=== PATIENT | male | born 1935 | race Caucasian/White ===

== ENCOUNTER → 2016-06-30 | Outpatient (CLI) | payer MEDICARE ==
--- NOTE | 2016-06-30 15:19 | CT ---
EXAMINATION TYPE: CT abdomen pelvis wo con DATE OF EXAM: 06/30/2016 2:54 PM COMPARISON: 12/06/2015 HISTORY: f/u AAA CT DLP: 277.5 mGycm Automated exposure control for dose reduction was used. TECHNIQUE: Helical acquisition of images was performed from the lung bases through the pelvis. FINDINGS: LUNG BASES: There is extensive emphysematous changes involving the lung bases. Chest leads are seen a s well as coronary artery calcification and there is an area of subsegmental consolidation with exten sive pleural therefore likely postinflammatory within the right lower lobe. Small right pleural effus ion. LIVER/GB: Hepatic granuloma noted. There are numerous gallstones.. PANCREAS: No significant abnormality is seen. SPLEEN: Splenic granuloma noted.. ADRENALS: No significant abnormality is seen. KIDNEYS: Left kidney is atrophic. There is no hydronephrosis bilaterally. There are at least 5 right renal calculi predominantly involving the infundibulum and calyces with the largest measuring approxi mately 1.2 cm. URINARY BLADDER: No significant abnormality is seen. ADENOPATHY: None visualized. OSSEOUS STRUCTURES: Facet arthropathy and degenerative change of the spine. Vascular calcifications n oted. Metallic seeds within the region of the prostate bed are noted. Bladder is nondistended and solis ited. Appears to have a thickened wall correlate for cystitis. BOWEL: No significant abnormality is seen. OTHER: At the level of aortic hiatus the aortic is aneurysmal measuring 3.1 cm. At the level of the r enal veins the aorta is aneurysmal measuring 3.6 cm. Remains this approximate size extending inferior ly for 1.2 cm on which it increases in diameter measuring 4.8 cm approximately 1.2 cm below this leve l. The infrarenal abdominal aorta has a maximal transverse diameter 7.4 cm. This has increased from 5 .9 cm on the previous examination. This extends to the aortic bifurcation. The common iliac arteries are also ectatic. The right measures 15 mm in the left measures 17 mm. Report telephoned to the patie nt's physician. IMPRESSION: 1. The abdominal aorta appears to progressed in size relative to the previous exam now demonstrates a maximal dimension of 7.4 cm compared to 6.4 cm from the previous exam. Aneurysm extends to the bifur cation with ectasia involving the iliac arteries. 2. Cholelithiasis 3. Nephrolithiasis with no evidence of obstruction. 4. Extensive changes of COPD and small right effusion with basilar consolidation likely in the basis of chronic atelectasis.
== END ==
LOC: RADCTMAIN 13:49
PROVIDERS: ATTEND Surgery Vascular Surgery
DX: I71.4 Abdominal aortic aneurysm, without rupture (principal); I72.8 Aneurysm of other specified arteries; K80.20 Calculus of gallbladder without cholecystitis without obstruction; N20.0 Calculus of kidney
CPT/HCPCS: 74176

== ENCOUNTER → 2016-08-27 | Outpatient (CLI) | payer MEDICARE ==
--- NOTE | 2016-08-27 14:41 | NM ---
EXAMINATION TYPE: NM bone scan whole body DATE OF EXAM: 08/27/2016 2:22 PM COMPARISON: CT abdomen and pelvis June 30, 2016. Older CT December 06, 2015 HISTORY: Low back pain. Delayed whole-body scanning was performed following the injection of 23.8 mCi Tc 99m MDP. Images acq uired 3 hours post injection. Whole body images are acquired as well as multiple projections of the t horax abdomen and pelvis. FINDINGS: Horizontal areas of abnormal uptake throughout the thoracolumbar spine correlate with progressive com pression type fractures seen on consecutive CT scans with possible new liver fractures near thoracolu mbar junction and in the mid to lower thoracic spine noted. No suspicious appendicular uptake is seen . 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
== END | disposition home or self-care (01) ==
LOC: RADNMMAIN 10:37
PROVIDERS: ATTEND Orthopaedic Surgery Orthopaedic Surgery of the Spine
DX: S32.000A Wedge compression fracture of unspecified lumbar vertebra, initial encounter for closed fracture (principal); S22.000A Wedge compression fracture of unspecified thoracic vertebra, initial encounter for closed fracture
CPT/HCPCS: 78306; A9503

== ENCOUNTER → 2017-05-13 | Outpatient (CLI) | payer MEDICARE ==
[2017-05-13 13:17] LABS: HCT 37.7 % (39.0-53.0); HGB 11.7 gm/dL (13.0-17.5); MCH 30.2 pg (25.0-35.0); MCHC 30.9 g/dL (31.0-37.0); MCV 97.7 fL (80.0-100.0); Mean Platelet Volume 6.9; Platelet Count 208 k/uL (150-450); RBC 3.86 m/uL (4.30-5.90); RDW 13.3 % (11.5-15.5); WBC 7.1 k/uL (3.8-10.6)
[2017-05-13 13:45] LABS: Albumin 3.4 g/dL (3.5-5.0); Calcium 8.5 mg/dL (8.4-10.2); Phosphorus 3.7 mg/dL (2.5-4.5); Uric Acid 6.6 mg/dL (3.5-8.5)
[2017-05-13 19:13] LABS: Vitamin D 25 Hydroxy 26.3 ng/mL (30.0-100.0)
[2017-05-13 21:15] LABS: Parathyroid Hormone Intact 65.1 pg/mL (14.0-72.0)
== END | disposition home or self-care (01) ==
LOC: LABWHC1 12:14
PROVIDERS: ATTEND Internal Medicine Nephrology
DX: N18.4 Chronic kidney disease, stage 4 (severe) (principal); N20.0 Calculus of kidney; I71.4 Abdominal aortic aneurysm, without rupture; C61 Malignant neoplasm of prostate; R60.0 Localized edema
CPT/HCPCS: 36415; 80048; 82040; 82306; 83970; 84100; 84550; 85027

== ENCOUNTER → 2017-09-15 | Outpatient (CLI) | payer MEDICARE ==
[2017-09-15 12:27] LABS: Potassium 4.4 mmol/L (3.5-5.1)
== END | disposition home or self-care (01) ==
LOC: LABWHC1 11:31
PROVIDERS: ATTEND Internal Medicine Interventional Cardiology
DX: I10 Essential (primary) hypertension (principal)
CPT/HCPCS: 36415; 80051; 82565; 84520